=== PATIENT | male | born 1985 | race Two or more races ===

== ENCOUNTER 2019-03-11 12:22 | Emergency (ER) | payer MEDICAID, OTHER ==
[~2019-03-11] VITALS: Ht 172.7 cm; Wt 93.9 kg
[2019-03-11 14:34] VITALS: BP 142/94
[2019-03-11] MEDS ORDERED: LIDOCAINE 1% HCL (LOCAL ANESTH.) INJ 20ML MDV IJ ONE (15:45)
[2019-03-11] MEDS ORDERED: CLINDAMYCIN 600MG IV 50 ML IV ONE (15:45)
== END 2019-03-11 17:04 | disposition home or self-care (01) ==
LOC: ER 12:22
DX: L03.113 Cellulitis of right upper limb (principal); L02.411 Cutaneous abscess of right axilla; F17.210 Nicotine dependence, cigarettes, uncomplicated; I10 Essential (primary) hypertension
CPT/HCPCS: 10060; 96365; 99283; C1887; J3490

== ENCOUNTER 2019-08-21 02:23 | Emergency (ER) | payer SELFPAY ==
[~2019-08-21] VITALS: Ht 172.7 cm; Wt 95.3 kg
[2019-08-21 02:36] VITALS: BP 139/92
== END 2019-08-21 02:49 | disposition left against medical advice (07) ==
LOC: ER 02:25
DX: Z02.89 Encounter for other administrative examinations (principal); F12.10 Cannabis abuse, uncomplicated; I10 Essential (primary) hypertension

== ENCOUNTER 2019-10-29 09:38 | Emergency (ER) | payer MEDICAID, OTHER ==
[~2019-10-29] VITALS: Ht 172.7 cm; Wt 95.3 kg
[2019-10-29 10:03] VITALS: BP 150/94
[2019-10-29] MEDS ORDERED: HYDROcodone-ACET 7.5/325MG TAB PO ONE (10:30)
== END 2019-10-29 11:33 | disposition home or self-care (01) ==
LOC: ER 09:38
DX: S42.022A Displaced fracture of shaft of left clavicle, initial encounter for closed fracture (principal); F17.210 Nicotine dependence, cigarettes, uncomplicated; V86.56XA Driver of dirt bike or motor/cross bike injured in nontraffic accident, initial encounter; Y93.89 Activity, other specified; Y92.89 Other specified places as the place of occurrence of the external cause; Y99.8 Other external cause status
CPT/HCPCS: 29105; 71046; 73000